=== PATIENT | female | born 1965 | race Caucasian/White ===

== ENCOUNTER → 2019-07-29 | Outpatient (CLI) | payer BC ==
--- NOTE | 2019-07-30 09:50 | XR ---
EXAMINATION TYPE: XR KUB DATE OF EXAM: 07/29/2019 COMPARISON: NONE HISTORY: Lithotripsy TECHNIQUE: One view abdominal series FINDINGS: The osseous structures are intact. The bowel gas pattern is nonspecific. Renal outlines are secured by overlying extensive bowel content. Hypertrophic change of the acetabulu m can be associated with femoral acetabular impingement. Calcifications in the lower pelvic basin are suggestive of vascular calcifications. Osteitis pubis condensans noted. Changes of sacroiliitis note d. IMPRESSION: 1. Nonspecific abdomen. Renal outlines are obscured by extensive bowel content.
== END | disposition home or self-care (01) ==
LOC: RADXRMAIN 15:45
PROVIDERS: ATTEND Urology
DX: N20.0 Calculus of kidney (principal)
CPT/HCPCS: 74018